=== PATIENT | female | born 1955 | race Caucasian/White ===

== ENCOUNTER → 2020-02-05 09:46 | Outpatient (CLI) | payer MEDICAID, SELFPAY ==
[2020-01-01 14:27] VITALS: BMI 35.4
--- NOTE | 2020-02-05 09:48 | AVDS_ITS ---
Reason For Study: Complications with dialysis graft LEFT Left Brachial artery inflow, 257/112.1 cm/sec. Left Brachial artery inflow, 784.2 ml/min. Left prox anast, 330.6/188.8 cm/sec. Left prox anast, 880.8 ml/min. Left graft, prox to enlargement, 682/367 cm/sec. Left graft, prox to enlargement, 842.5 ml/min. Left prox graft, 107.8/30.1 cm/sec. Left prox graft, 3519 ml/min. Left mid graft, 107.7/40.4 cm/sec. Left mid graft, 1007 ml/min. Left distal graft, 94.8/27.4. Left distal graft, 655.7 ml/min. Left outflow, 94.8/35.2 cm/sec. Left outflow, 797.3 ml/min. Interpretation Summary Normal left brachial artery flow volume at 784 mm/min Proximal left upper extremity fistula flow 842.5 mm/min Left upper extremity fistula flow distal to aneurysmal change 3519 mm/min Left mid fistula flow 1007 mm/min Left distal fistula flow 655.7 mm/min Left upper extremity fistula outflow 797 mm/min Aneurysmal change proximal left fistula 2.16 x 3.24 cm Ordering Physician: Paulino Herzog Referring Physician: Cipriano Mccartney Performed By: Kianna Garay RVT
== END ==
PROVIDERS: PCP Internal Medicine; Referring Provider Surgery; Visit Provider Surgery
DX: T82.898A Other specified complication of vascular prosthetic devices, implants and grafts, initial encounter (principal)
CPT/HCPCS: 93990